=== PATIENT | male | born 1985 | race Caucasian/White ===

== ENCOUNTER 2017-01-13 15:57 | Emergency (ER) | payer MEDICAID ==
--- NOTE | 2017-01-13 16:07 | Emergency Department Record ---
History of Present Illness - General Chief complaint: Rash Stated complaint: RASH Time Seen by Provider: 01/13/17 15:59 Source: Patient, Family Mode of Arrival: Ambulatory Limitations: No limitations - History of Present Illness Initial comments: 31 yo male presents with an itchy rash on the abdomen, back, upper and lower extremities. No pain. No fever or chills. He has exposure to poison tami. NO cough, shortness of breath, swelling of the lips, tongue, or throat. No other current symptoms. No NVD. MD complaint: Rash -: Days(s) (2) Location: Generalized Severity: Moderate Quality: Other (itches) Improves with: None Worsens with: None Context: Other (Poison Tami Exposure) Associated symptoms: Denies other symptoms Treatments Prior to Arrival: Other (Tami Dry spray) - Related Data Home Medications Medication Instructions Recorded Confirmed Last Taken Methylphenidate HCl [Concerta] 108 mg PO DAILY 10/02/15 01/13/17 1 Day Ago ~10/01/15 Omeprazole [Prilosec] 40 mg PO DAILY 10/02/15 01/13/17 1 Day Ago ~10/01/15 Paliperidone [Invega] 3 mg PO DAILY 10/02/15 01/13/17 1 Day Ago ~10/01/15 Paroxetine HCl [Paxil] 20 mg PO DAILY 10/02/15 01/13/17 1 Day Ago ~10/01/15 Sitagliptin Phosphate [Januvia] 100 mg PO DAILY #30 10/06/16 01/13/17 Unknown Metformin HCl 1,000 mg PO DAILY 01/13/17 01/13/17 Unknown Previous Rx's Medication Instructions Recorded Hydrocortisone 28.35 gm TP BID #1 cream..g. 01/13/17 Hydroxyzine Pamoate [Vistaril] 25 mg PO Q6H #20 capsule 01/13/17 Allergies Allergy/AdvReac Type Severity Reaction Status Date / Time No Known Drug Allergies Allergy Unverified 10/06/16 08:55 Review of Systems Constitutional: Denies: Chills, Fever, Malaise, Weakness Eyes: Denies: Eye discharge, Eye pain, Photophobia, Vision change ENT: Denies: Congestion, Throat pain Respiratory: Denies: Cough, Dyspnea Cardiovascular: Denies: Chest pain, Syncope Endocrine: Denies: Fatigue Gastrointestinal: Denies: Abdominal pain, Diarrhea, Nausea, Vomiting Genitourinary: Denies: Dysuria, Frequency, Hematuria Musculoskeletal: Denies: Arthralgia, Myalgia Skin: Reports: As per HPI, Change in color, Rash. Denies: Bruising Neurological: Denies: Confusion Psychiatric: Denies: Anxiety Hematological/Lymphatic: Denies: Blood Clots, Easy bleeding, Easy bruising, Swollen glands Past Medical History - SOCIAL HISTORY Smoking Status: Never smoker - RESPIRATORY Hx Respiratory Disorders: No - CARDIOVASCULAR Hx Cardio Disorders: No - NEURO Hx Neuro Disorders: No - GI Hx Reflux: Yes - Hx Genitourinary Disorders: No - ENDOCRINE Hx Diabetes: Yes Hx Thyroid Disease: No - MUSCULOSKELETAL Hx Musculoskeletal Disorders: No - PSYCH Hx Anxiety: Yes - HEMATOLOGY/ONCOLOGY Hx Hematology/Oncology Disorders: No Family Medical History Hx Diabetes: Father, Grandparents Physical Exam - General General Appearance: Alert, Oriented x3, Cooperative, No acute distress Limitations: No limitations - Head Head exam: Normal inspection - Eye Eye exam: Normal appearance, PERRL, Other (no facial rash) - ENT ENT exam: Normal exam, Mucous membranes moist Ear exam: Normal external inspection Nasal Exam: Normal inspection Mouth exam: Normal external inspection Throat exam: Normal inspection - Neck Neck exam: Normal inspection, Full ROM. negative: Tenderness - Respiratory Respiratory exam: Normal lung sounds bilaterally. negative: Respiratory distress - Cardiovascular Cardiovascular Exam: Regular rate, Normal rhythm, Normal heart sounds - GI/Abdominal GI/Abdominal exam: Soft, Other (patch of macular papular rash on the abdomen). negative: Tenderness - Rectal Rectal exam: Deferred - exam: Deferred - Extremities Extremities exam: Full ROM. negative: Normal inspection, Joint swelling, Pedal edema, Tenderness - Back Back exam: Denies: Normal inspection (patch of macular papular rash on the shoulders) - Neurological Neurological exam: Alert - Psychiatric Psychiatric exam: Normal affect, Normal mood - Skin Skin exam: Erythema, Rash. negative: Diaphoretic, Mottled, Normal color, Petechiae, Vesicles, Warm Type of lesion: Rash Distribution of rash: RUE, LUE, RLE, LLE Description of rash: Macular, Papular. negative: Bullous Course - Reevaluation(s) Reevaluation #1: The patient is a diabetic that rarely checks his blood sugars He is not a good candidate for systemic steroids at this time He will be treated with topical steroids, Vistaril, and recommended Zanfel I recommend discussing with his doctor an appropriate schedule for him to regularly check his sugars 01/13/17 16:12 Disposition Disposition: Discharge Clinical Impression: Contact dermatitis Qualifiers: Contact dermatitis type: allergic Contact dermatitis trigger: non-food plants Qualified Code(s): L23.7 - Allergic contact dermatitis due to plants, except food Disposition: Home, Self-Care Condition: (1) Good Instructions: Contact Dermatitis (ED) Additional Instructions: Follow up with your doctor in the next 2-3 days if not improving Return if worse, fever, drainage or concerns As a diabetic you will need to talk with your doctor about regular checking of your sugars You may try over the counter Zanfel as well for relief of symptoms Prescriptions: Hydrocortisone 28.35 gm TP BID #1 cream..g. Hydroxyzine Pamoate [Vistaril] 25 mg PO Q6H #20 capsule Forms: Patient Portal Access Quality - Quality Measures Quality Measures: N/A - Blood Pressure Screening View Details: Yes Blood Pressure Classification: Pre-Hypertensive BP Reading Systolic Measurement: 126 Diastolic Measurement: 88 Screening for High Blood Pressure: < Pre-Hypertensive BP, F/U Documented > [ [id number]] Pre-Hypertensive Follow-up Interventions: Referral to alternative/primary care provider.
== END 2017-01-13 16:11 | disposition home or self-care (01) ==
LOC: ER 15:57
DX: L23.7 Allergic contact dermatitis due to plants, except food (principal); E11.9 Type 2 diabetes mellitus without complications; Z79.84 Long term (current) use of oral hypoglycemic drugs
CPT/HCPCS: 99282